=== PATIENT | male | born 1980 | race Caucasian/White ===

== ENCOUNTER 2017-02-12 18:42 | Emergency (ER) | payer SELFPAY ==
[~2017-02-12] VITALS: Ht 175.3 cm; Wt 95.0 kg
[2017-02-12 18:52] VITALS: BP 129/83
== END 2017-02-12 20:11 | disposition home or self-care (01) ==
LOC: ED 20:05
DX: G56.03 Carpal tunnel syndrome, bilateral upper limbs (principal)
CPT/HCPCS: 99283; J7512